=== PATIENT | female | born 1965 | race Caucasian/White ===

== ENCOUNTER 2017-03-18 07:07 | Day surgery (SDC) | payer BC ==
[~2017-03-18 07:07] MED LIST: Buffered Lidocaine 0.9% SYRIN* 5 ML/SYR SYRINGE INTRADERM ONE
[2017-03-18] MEDS ORDERED: Buffered Lidocaine 0.9% SYRIN* 5 ML/SYR SYRINGE ONE (07:16)
[2017-03-18] MEDS ORDERED: Lidocaine 2.5%/Prilocain 2.5%* 5 GM TUBE ONE (07:16)
[2017-03-18] MEDS ORDERED: Ketorolac INJ* 30 MG/ML 1 ML VIAL ONE (11:00)
[2017-03-18] MEDS ORDERED: Midazolam* 1 MG/ML 2 ML VIAL (2 MG) ONE (12:17)
[2017-03-18] MEDS ORDERED: Lidocaine 1% INJ* 10 MG/ML 30 ML SDV ONE (12:33)
[2017-03-18] MEDS ORDERED: Bupivacaine 0.5% SDV PF* 30 ML VIAL ONE (12:33)
[2017-03-18] MEDS ORDERED: Famotidine IV* 10 MG/ML 2 ML (20 mg) ONE (12:38)
[2017-03-18] MEDS ORDERED: ceFAZolin 2 GM PREMIX (*) 2 GM/50 ML BAG IVPB ONE (12:40)
[2017-03-18] MEDS ORDERED: Propofol* 10 MG/ML 20 ML BTL IV PUSH ONE (12:52)
[2017-03-18] MEDS ORDERED: Ondansetron INJ* 2 MG/ML VIAL ONE (12:52)
[2017-03-18] MEDS ORDERED: Propofol* 0 MG/0 ML BTL ONE (12:52)
[2017-03-18] MEDS ORDERED: Lidocaine 2% PF * 5 ML VIAL ONE (12:52)
[2017-03-18] MEDS ORDERED: Dexamethasone IV* 4 MG/ML 1 ML (4 MG) ONE (12:52)
[2017-03-18] MEDS ORDERED: fentaNYL* 50 MCG/ML 2 ML VIAL (100 MCG VIAL) ONE (12:58)
[2017-03-18] MEDS ORDERED: PROCHLORPERAZINE INJ 5 MG/ML 2 ML VIAL IV PRN (13:06)
[2017-03-18] MEDS ORDERED: Ondansetron INJ* 2 MG/ML VIAL IV PRN (13:06)
[2017-03-18] MEDS ORDERED: Acetaminophen TAB* 325 MG PO PRN (13:06)
[2017-03-18] MEDS ORDERED: DiMENhydriNATE IV* 50 MG/ML VIAL IV PUSH PRN (13:06)
[2017-03-18] MEDS ORDERED: fentaNYL* 50 MCG/ML 2 ML VIAL (100 MCG VIAL) IV PRN (13:06)
[2017-03-18] MEDS ORDERED: HYDROcodone/ACETAMIN 5-325 MG* 1 TAB PO PRN (13:06)
[2017-03-18] MEDS ORDERED: Desflurane* 240 ML INH ONE (13:27)
--- NOTE | 2017-03-18 13:47 | PN ---
Progress Note - Progress Note Date of Service: 03/18/17 Note: Brief Operative Note: Preop Dx: ADH Left breast Postop Dx: same Procedure: excision ADH Left breast after needle-localization Anesthesia: Gen LMA Surgeon: Margaret Asst: TARUN Wilkerson Fluids: 800 ml EBL: 20 ml Specimen: Left breast tissue, confirmed by radiology Findings: dictated
[2017-03-18] MEDS ORDERED: Acetaminophen TAB* 325 MG ONE (14:34)
[2017-03-18 15:11] VITALS: BP 125/84
--- NOTE | 2017-03-18 16:13 | RAD ---
Indication: Atypical ductal hyperplasia. Using usual aseptic technique and after obtaining informed consent the radiopaque marker previously left from prior biopsy was localized utilizing a 5 cm Kopan's needle. A craniocaudal approach was used. 90 degree lateral view demonstrates appropriate depth of the needle. A guidewire was placed and confirmation of needle placement was performed. Specimen radiograph demonstrates the localized radiopaque marker to be within the specimen. IMPRESSION: Successful localization of radiopaque marker in the left breast.
--- NOTE | 2017-03-19 00:45 | OP ---
CC: Dr. Sav Martinez * DATE OF OPERATION: 03/18/17 - [facility] DATE OF : 61 SURGEON: Dennis Robles MD MECHANICS HANDYMAN: TARUN Jefferson ANESTHESIOLOGIST: Santana Farias MD ANESTHESIA: General anesthetic, local infiltration. PRE-OP DIAGNOSIS: Left breast lesion mammographically identified. POST-OP DIAGNOSIS: Left breast lesion mammographically identified. OPERATIVE PROCEDURE: Needle localizing excision of left breast lesion. DESCRIPTION OF PROCEDURE: The patient was supine on the operative table. After adequate general anesthetic, compression stockings, Vanesa Hugger warmer, and intravenous antibiotics, the left breast was prepped with antiseptic, draped in a sterile fashion. Local infiltrative anesthesia was administered and approximately a 4 to 5-mm incision was created in the region of the guidewire and a piece of breast tissue approximately 3 x 3 x 4 cm in size was removed and marked with usual localizing sutures, sent fresh to x-ray, which confirmed excision of the lesion. It was then forwarded onto Pathology. Hemostasis was obtained using electrocautery. Irrigation was carried out. Everything was in good condition. Closure was accomplished with 3-0 and 5-0 Vicryl followed by Steri-Strips. She was brought to Recovery in good condition. There were no complications, no drains. Pathologic specimen as above. Sponge and instrument counts were correct. Estimated blood loss was 20 mL. [id number]/[facility] #: [id number] MTDD
== END 2017-03-18 15:24 | disposition home or self-care (01) ==
LOC: SDS 07:07
PROVIDERS: ATTEND Surgery
DX: N60.82 Other benign mammary dysplasias of left breast (principal); N60.12 Diffuse cystic mastopathy of left breast; I10 Essential (primary) hypertension; R06.83 Snoring
CPT/HCPCS: 88307; A9270-GY; J0690; J1100; J1885; J2250; J2405; J2704; J3010